=== PATIENT | male | born 1980 | race Caucasian/White ===

== ENCOUNTER 2016-12-15 18:44 | Inpatient (IN) | payer MEDICAID ==
[~2016-12-15] VITALS: Ht 170.2 cm; Wt 83.5 kg
[2016-12-15 22:27] LABS: BASOPHIL % 0.3 % (0-2); PLATELET COUNT 185 x10^3mcL (130-400); RED CELL DISTRIBUTION WIDTH 13.1 % (11.5-14.5)
[2016-12-15 22:34] LABS: CALCIUM 9.3 mg/dL (8.5-10.1); CARBON DIOXIDE 27.5 mmol/L (21-32); CHLORIDE SERUM 102 mmol/L (98-107); CREATININE SERUM 0.8 mg/dL (0.7-1.3); GFR1 > 60 mL/min; GLUCOSE SERUM 101 mg/dL (74-106); POTASSIUM SERUM 4.2 mmol/L (3.5-5.1); SODIUM SERUM 139 mmol/L (136-145)
[2016-12-15 22:38] LABS: ALBUMIN 4.1 g/dL (3.4-5.0); ALKALINE PHOSPHATASE 106 U/L (46-116); ALT/SGPT 54 U/L (16-63); AST/SGOT 21 U/L (15-37); BILIRUBIN TOTAL 0.4 mg/dL (0.20-1.00); LIPASE 104 IU/L (73-393); TOTAL PROTEIN, SERUM 7.8 g/dL (6.4-8.2)
[2016-12-15 23:06] LABS: UA SPECIFIC GRAVITY 1.025 (1.005-1.035); microscopic required? YES; urine erythrocyte 3+ (NEGATIVE)
[2016-12-16 00:49] VITALS: BP 114/68
[2016-12-16 00:55] LABS: T3 TOTAL 1.34 ng/mL
[2016-12-16 01:09] LABS: MAGNESIUM 1.8 mg/dL (1.8-2.4); PHOSPHOROUS 4.2 mg/dL (2.5-4.9)
[2016-12-16 01:12] LABS: FREE T4 1.06 ng/dL (0.76-1.46); FREE THYROXINE INDEX 2.9 ug/dL (1.4-4.5); T4(THYROXINE) 8.7 ug/dL (4.7-13.3)
[2016-12-16 04:31] LABS: AMPHETAMINE QUAL UR NONE DETECTED (NEG <=1000)
[2016-12-16 06:30] VITALS: BP 118/65
[2016-12-16 06:30] LABS: CALCIUM 7.9 mg/dL (8.5-10.1); CARBON DIOXIDE 24.1 mmol/L (21-32); CHLORIDE SERUM 109 mmol/L (98-107); CREATININE SERUM 0.6 mg/dL (0.7-1.3); GFR1 > 60 mL/min; GLUCOSE SERUM 96 mg/dL (74-106); POTASSIUM SERUM 3.8 mmol/L (3.5-5.1); SODIUM SERUM 143 mmol/L (136-145)
[2016-12-16 07:51] LABS: BASOPHIL % 0.2 % (0-2); RED CELL DISTRIBUTION WIDTH 13.1 % (11.5-14.5)
[2016-12-16 08:51] VITALS: Ht 170.2 cm; Wt 83.5 kg
[2016-12-16 09:16] LABS: PLATELET COUNT 147 x10^3mcL (130-400)
[2016-12-16 09:51] VITALS: BP 119/79
[2016-12-16 14:00] VITALS: BP 108/60
[2016-12-16] MEDS ORDERED: TAMSULOSIN HYD0.4 M1 PO (17:34)
[2016-12-16 18:02] VITALS: BP 111/65
[2016-12-16 20:57] VITALS: BP 106/62
[2016-12-17 05:51] VITALS: BP 100/57
[2016-12-17] MEDS ORDERED: NORCO1 TA2 PO (09:08)
[2016-12-17 09:21] VITALS: BP 127/87
[2016-12-17 12:31] VITALS: BP 127/87
== END 2016-12-17 14:44 | disposition home or self-care (01) | DRG 465 ==
LOC: ED 18:44 → DU 23:43 → MU 12-17 11:42
PROVIDERS: Emergency Medicine; ADMIT Family Medicine
DX: N13.2 Hydronephrosis with renal and ureteral calculous obstruction (principal); K40.90 Unilateral inguinal hernia, without obstruction or gangrene, not specified as recurrent; N40.0 Benign prostatic hyperplasia without lower urinary tract symptoms; R31.9 Hematuria, unspecified; Z68.28 Body mass index [BMI] 28.0-28.9, adult
CPT/HCPCS: 82962; 83880; 84439; J0696; J1885; J2405; J3010; J7030